=== PATIENT | male | born 1970 | race Caucasian/White ===

== ENCOUNTER 2016-07-02 13:15 | Day surgery (SDC) | payer MEDICAID ==
[2016-07-02] MEDS ORDERED: fentaNYL 100 MCG/2 ML INJ ONE (14:26)
[2016-07-02] MEDS ORDERED: MIDAZOLAM 2 MG/2 ML VIAL ONE (14:27)
[2016-07-02] MEDS ORDERED: NS 1,000 ML IV SCH (15:00)
[2016-07-02] MEDS ORDERED: IOPAMIDOL (ISOVUE-M 300) 15 ML VIAL IV ONE (15:05)
[2016-07-02] MEDS ORDERED: TRIAMCINOLONE ACETONIDE 200 MG/5 ML MDV IM ONE (15:05)
--- NOTE | 2016-07-02 15:33 | IR ---
Lumbar Epidural Steroid Injection History: Severe low back pain radiating to both legs. Consent: Risks and benefits of the procedure were discussed in detail, and informed consent was obtai haley. The patient accepted risks of lack of therapeutic benefit, internal bleeding, infection, and ac cidental dural puncture. Medications: Intravenous conscious sedation and analgesia were given under my supervision. Vital sign s, pulse oximetry, and electrocardiogram were monitored. The patient received 2 milligrams of Versed and 100 micrograms of fentanyl intravenously. Start time: 1440. End time: 1505. Fluoroscopy time in minutes: 1.1. Estimated exposure in mGy: 63.0. Technique: With the patient prone, the low back was prepped and draped in sterile fashion. 1% Xylocai ne was used for local anesthetic. Using multiplanar fluoroscopic guidance, an 18-gauge Tuohy needle w as inserted into the back of the spinal canal via L4-L5 interlaminar approach. Epidural position was confirmed with 2 mL of Isovue-M 300 and spot images. 2.5 mL of Kenalog (100 mg) and 3 mL of preservat prateek-free 1% Xylocaine were injected. The needle was removed and a frontal spot image was taken. Steri le dressing was applied. The patient tolerated the procedure well and was returned to postprocedure r ecovery for observation. Epidurogram: Epidural contrast extends from L3 through L5. Lumbar segmentation is standard. Impression: Fluoroscopic-guided lumbar epidural injection of long-acting steroid and rapid-acting ane sthetic via L4-L5. - - - - - - - - - - - - - - - - - - - - - - - - - - - - - - - - - - - - - - - - - - - - (PQRS Measures: Current medications were listed in the medical record, including all known prescript ions, [id number] medications, herbal medications, and nutritional supplements. Tobacco Use: Th e patient was advised to stop. Prophylactic antibiotic: Unnecessary. VTE prophylaxis: Unnecessary.)
== END 2016-07-02 15:45 | disposition home or self-care (01) ==
LOC: FIMAGING 13:15
PROC: 3E0S3BZ Introduction of Anesthetic Agent into Epidural Space, Percutaneous Approach (ICD-10-PCS; 2016-07-02)
PROC: 3E0S33Z Introduction of Anti-inflammatory into Epidural Space, Percutaneous Approach (ICD-10-PCS; principal; 2016-07-02 15:09)
DX: M54.5 Low back pain (principal); M48.06 Spinal stenosis, lumbar region; I10 Essential (primary) hypertension; F17.200 Nicotine dependence, unspecified, uncomplicated; G40.909 Epilepsy, unspecified, not intractable, without status epilepticus
CPT/HCPCS: J2250; J3010; J3301; Q9967

== ENCOUNTER 2016-08-05 09:32 | Emergency (ER) | payer MEDICAID ==
[2016-08-05 09:41] VITALS: BP 129/84; PULSE 92; RESP 16; TEMP 98.4; O2SAT 96
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
== END 2016-08-05 10:07 | disposition home or self-care (01) ==
DX: M54.41 Lumbago with sciatica, right side (principal); J45.909 Unspecified asthma, uncomplicated; Z72.89 Other problems related to lifestyle; Z87.891 Personal history of nicotine dependence

== ENCOUNTER 2016-09-22 08:41 | Emergency (ER) | payer MEDICAID ==
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
[2016-09-22] MEDS ORDERED: HYDROCOD/APAP 5/325 PREPACK#6 BTL TAKEHOME ONE (10:00)
[2016-09-22 10:20] VITALS: BP 129/79; PULSE 70; RESP 14; TEMP 98.4; O2SAT 96
== END 2016-09-22 10:19 | disposition home or self-care (01) ==
DX: S63.502A Unspecified sprain of left wrist, initial encounter (principal); S62.111A Displaced fracture of triquetrum [cuneiform] bone, right wrist, initial encounter for closed fracture; F17.200 Nicotine dependence, unspecified, uncomplicated; V19.9XXA Pedal cyclist (driver) (passenger) injured in unspecified traffic accident, initial encounter; Y92.410 Unspecified street and highway as the place of occurrence of the external cause; Y93.55 Activity, bike riding
CPT/HCPCS: L3807

== ENCOUNTER 2017-05-23 21:28 | Emergency (ER) | payer MEDICAID ==
[~2017-05-23 21:28] MED LIST: HALOPERIDOL LACT 5 MG/ML INJ ONE; LORazepam 2 MG/ML INJ ONE
[2017-05-23] MEDS ORDERED: LORazepam 2 MG/ML INJ IM ONE (21:30)
[2017-05-23] MEDS ORDERED: HALOPERIDOL LACT 5 MG/ML INJ IM ONE (21:30)
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
[2017-05-23 22:08] LABS: % IMMATURE GRANULYOCYTES 0.3 % (0.0-1.1); ABSOLUTE IMMATURE GRANULOCYTES 0.02 10^3/uL (0.00-0.10); ADD DIFF? NO; ADD MORPH? NO; ADD SCAN? NO; ATYPICAL LYMPHOCYTE FLAG 0 (0-99); FRAGMENT RBC FLAG 0 (0-99); HEMATOCRIT 47.3 % (40.0-51.0); HEMOGLOBIN 17.7 g/dL (13.7-17.5); LEFT SHIFT FLG 0 (0-99); LIPEMIA HEMOLYSIS FLAG 90 (0-99); MEAN CELL HEMOGLOBIN 36.6 pg (27.9-34.1); MEAN CELL HEMOGLOBIN CONCENTR. 37.4 g/dL (32.4-36.7); MEAN CELL VOLUME 97.9 fL (81.5-99.8); MEAN PLATELET VOLUME 9.9 fL (8.7-11.7); PLATELET CLUMPS FLAG 0 (0-99); PLATELET COUNT 172 10^3/uL (150-400); RED BLOOD CELL COUNT 4.83 10^6/uL (4.40-6.38); RED CELL DISTRIBUTION WIDTH 12.2 % (11.5-15.2)
[2017-05-23 22:24] LABS: ANION GAP 20 mEq/L (8-16); CARBON DIOXIDE 19 mEq/l (22-31); CHLORIDE 110 mEq/L (97-110); CREATININE 1.2 mg/dL (0.7-1.3); GLOMERULAR FILTRATION RATE > 60; GLUCOSE 93 mg/dL (70-100); POTASSIUM 3.4 mEq/L (3.5-5.2); SALICYLATE < 1.0 mg/dL (2.0-20.0); SODIUM 149 mEq/L (134-144)
[2017-05-23 22:43] LABS: ETHANOL SERUM 321 mg/dL (0-10)
[2017-05-24 07:43] VITALS: BP 110/67; PULSE 92; RESP 20; TEMP 98.2; O2SAT 93
== END 2017-05-24 08:16 | disposition home or self-care (01) ==
LOC: EDUNIT#
DX: S60.811A Abrasion of right wrist, initial encounter (principal); S60.812A Abrasion of left wrist, initial encounter; F10.920 Alcohol use, unspecified with intoxication, uncomplicated; J45.909 Unspecified asthma, uncomplicated; F17.200 Nicotine dependence, unspecified, uncomplicated; X78.8XXA Intentional self-harm by other sharp object, initial encounter
CPT/HCPCS: 80305; G0480; J2060

== ENCOUNTER 2017-06-19 15:14 | Emergency (ER) | payer MEDICAID ==
[2017-06-19 15:37] VITALS: RESP 16
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
[2017-06-19] MEDS ORDERED: IPRATROPIUM/ALBUTEROL 3 ML DEYVIAL IH ONE (16:34)
[2017-06-19] MEDS ORDERED: predniSONE 20 MG TAB PO ONE (16:35)
[2017-06-19 17:31] VITALS: BP 135/96; PULSE 87; TEMP 98.8; O2SAT 93
== END 2017-06-19 17:31 | disposition home or self-care (01) ==
DX: J20.9 Acute bronchitis, unspecified (principal); F17.200 Nicotine dependence, unspecified, uncomplicated; J45.909 Unspecified asthma, uncomplicated

== ENCOUNTER 2017-07-01 12:48 | Emergency (ER) | payer MEDICAID ==
[2017-07-01 13:02] VITALS: BP 104/76; PULSE 102; RESP 18; TEMP 97.9; O2SAT 94
[2017-07-01] MEDS ORDERED: IPRATROPIUM/ALBUTEROL 3 ML DEYVIAL IH ONE (13:06)
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
[2017-07-01 13:16] LABS: PLATELET COUNT 290 10^3/uL (150-400)
[2017-07-01 13:29] LABS: INR 0.9 (0.83-1.16); PROTIME(PATIENT) 12.4 SEC (12.0-15.0)
[2017-07-01] MEDS ORDERED: ALBUTEROL INH PREPACK MDI TAKEHOME ONE (13:33)
[2017-07-01] MEDS ORDERED: DEXAMETHASONE 4 MG TAB PO ONE (13:33)
--- NOTE | 2017-07-01 13:39 | CPEKG ---
Heart Rate: 99 RR Interval: 606 P-R Interval: 140 QRSD Interval: 94 QT Interval: 344 QTC Interval: 442 P Lyons: 58 QRS Lyons: 5 T Wave Lyons: 57 EKG Severity - NORMAL ECG - EKG Impression: SINUS RHYTHM Electronically Signed By: Ferny Aguilar 01-Jul-2017 20:14:57
== END 2017-07-01 14:06 | disposition home or self-care (01) ==
LOC: EDUNIT#
DX: J40 Bronchitis, not specified as acute or chronic (principal); F17.200 Nicotine dependence, unspecified, uncomplicated

== ENCOUNTER 2017-07-06 19:39 | Emergency (ER) | payer MEDICAID ==
--- NOTE | 2017-07-06 19:46 | EDPHY ---
HPI/HX/ROS/PE/MDM - Data Points Imaging: I viewed and interpreted images myself Narrative: CHIEF COMPLAINT: Shortness of breath HISTORY OF PRESENT ILLNESS: The patient is a 47 y/o male with a recent history of being diagnosed with bronchitis on 07/01/16, 5 days ago, arriving via EMS complaining of shortness of breath, chest pain/tightness, and left arm pain. Patient's complaints of shortness of breath and chest discomfort have been present for 3 weeks. He was given an inhaler and prednisone during his prior ED visit. His shortness of breath has been going on for 3 weeks. Admits to coughing up blood recently and being subjectively febrile. Today his friend found him down and called 911. While en route to the ER he was noncompliant with EMS. Admits to drinking 1 pint of alcohol a day and smoking marijuana, including today. Admits to feeling "abandoned" and depressed today, but does not have a psychiatrist. On direct questioning the patient denies suicidal ideation. He states that he is too scared to take his own life. Patient denies known fever, chills, palpitations, vomiting, diarrhea, urinary complaints, lightheadedness. He does complain of a headache. REVIEW OF SYSTEMS: Aside from elements discussed in the HPI, a comprehensive 10-point review of systems was reviewed and is negative. PAST MEDICAL HISTORY: Bronchitis, hepatitis C, seizures, sepsis 01/10, bacterial meningitis, degenerative disc disease, chronic leg/back pain, PTSD, appendectomy, hernia repair SOCIAL HISTORY: Daily tobacco, marijuana, and alcohol use. Of note, patient was accompanied to the emergency department by numerous please police officers. 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 VITAL SIGNS: HR: 115, others reviewed by me GENERAL: Smells of alcohol and tobacco. Agitated. Well-developed, well-nourished , resting comfortably in no respiratory distress. HEENT: Atraumatic. Eyes: No icterus, no injection. Mouth: dry mucous membranes. No erythema or lesions. Neck: supple with no adenopathy. LUNGS: Clear to auscultation bilaterally, no wheezes, rhonchi or rales. CARDIAC: Regular rate and rhythm, no rubs, murmurs or gallops. ABDOMEN: Left lower quadrant discomfort. No guarding or rebound. Soft, nondistended, bowel sounds normal. BACK: No CVA tenderness. EXTREMITIES: No trauma. No edema. Range of motion is normal throughout. NEURO: Alert and oriented, grossly nonfocal. SKIN: Warm and dry, no rash. PSYCHIATRIC: Normal mentation, no agitation. Portions of this note were transcribed by a medical laboratory manager. I personally performed a history, physical exam, medical decision making, and confirmed accuracy of information the transcribed note. (Maame Jett) ED Course: The patient is a 47 y/o male with a recent history of being diagnosed with bronchitis on 07/01/16, 5 days ago, arriving via EMS presenting with left lower quadrant pain and dry mucous membranes. He is also complaining of worsening shortness of breath. Labs, EKG, and chest x-ray ordered. 1L IV NS and 1gm PO Tylenol administered. 1954: 12-LEAD EKG: Please see the full report in [facility]. My interpretation: Sinus tachycardia with a rate of 109 Patient's lactic acid is elevated at 3.1. 2027: Reviewed patient's chest x-ray; this reveals bronchitis. 2038: Reassessed patient and discussed imaging findings. Flu swab ordered. Labs demonstrate significant dehydration with H&H being elevated. The patient's alcohol is 339. 2199: Patient has received 2 L of normal saline. Repeat lactic acid was obtained and was improving. Patient has no evidence for pneumonia or influenza. I do not believe the patient meets criteria for 72 hr mental health hold. Received duo neb and albuterol neb. Reports improvement in symptoms. Also noted elevated lipase-- perhaps gerd/gastritis as cause of chest discomfort? 2299: Intermittently tachycardic and occasionally desats to 88%. Still intoxicated and has received dilaudid for headache and ativan for anxiety. Will continue to observe/ await medication clearance and further sobriety. Care assumed by Dr. Vincent at 2300. (Maame Jett) 2300 care assumed by me from Dr. Jett pending re-evaluation as of his oxygen status. 0005 patient is improved. He is no longer hypoxic. Patient understands his medical findings. Will discharge with outpatient follow-up per Dr. Jett plan. (Sam Vincent) MDM: Differential diagnosis for the patient's shortness of breath was considered including but not limited to pulmonary infectious processes, COPD exacerbation, pulmonary emboli, pulmonary edema, congestive heart failure, and cardiac causes. (Maame Jett) - Data Points Imaging Results: Imaging Impressions Chest X-Ray 07/06/17 19:57 Impression: Expiratory phase radiograph. Laboratory Results: Laboratory Results 07/06/17 19:52 07/06/17 19:52 07/06/17 07/06/17 07/06/17 22:33 22:14 20:40 WBC RBC Hgb Hct MCV MCH MCHC RDW Plt Count MPV Neut % (Auto) Lymph % (Auto) [place] % (Auto) Eos % (Auto) Baso % (Auto) Nucleat RBC Rel Count Absolute Neuts (auto) Absolute Lymphs (auto) Absolute Monos (auto) Absolute Eos (auto) Absolute Basos (auto) Absolute Nucleated RBC Immature Gran % Immature Gran # VBG Lactic Acid 1.5 mmol/L D mmol/L (0.7-2.1) Sodium Potassium Chloride Carbon Dioxide Anion Gap BUN Creatinine Estimated GFR Glucose Calcium Total Bilirubin Conjugated Bilirubin Unconjugated Bilirubin AST ALT Alkaline Phosphatase Troponin I Total Protein Albumin Lipase Urine Color YELLOW Urine Appearance CLEAR Urine pH 6.0 (5.0-7.5) Ur Specific [place] 1.012 (1.002-1.030) Urine Protein NEGATIVE (NEGATIVE) Urine Ketones NEGATIVE (NEGATIVE) Urine Blood NEGATIVE (NEGATIVE) Urine Nitrate NEGATIVE (NEGATIVE) Urine Bilirubin NEGATIVE (NEGATIVE) Urine Urobilinogen NEGATIVE EU EU (0.2-1.0) Ur Leukocyte Esterase NEGATIVE (NEGATIVE) Urine RBC 1-3 /hpf /hpf (0-3) Urine WBC NONE SEEN /hpf /hpf (0-3) Ur Epithelial Cells NONE SEEN /lpf /lpf (NONE-1+) Urine Mucus TRACE /lpf /lpf (NONE-1+) Urine Glucose NEGATIVE (NEGATIVE) Nasal Influenza A PCR NEGATIVE FOR FLU A (NEGATIVE) Nasal Influenza B PCR NEGATIVE FOR FLU B (NEGATIVE) Urine Opiates Screen NEGATIVE (NEGATIVE) Urine Barbiturates NEGATIVE (NEGATIVE) Ur Phencyclidine Scrn NEGATIVE (NEGATIVE) Ur Amphetamine Screen NEGATIVE (NEGATIVE) U Benzodiazepines Scrn NEGATIVE (NEGATIVE) Urine Cocaine Screen NEGATIVE (NEGATIVE) U Marijuana (THC) Screen NEGATIVE (NEGATIVE) Ethyl Alcohol 07/06/17 07/06/17 07/06/17 19:52 19:52 19:52 WBC 9.70 10^3/uL H 10^3/uL (3.80-9.50) RBC 4.99 10^6/uL 10^6/uL (4.40-6.38) Hgb 18.2 g/dL H g/dL (13.7-17.5) Hct 49.6 % % (40.0-51.0) MCV 99.4 fL fL (81.5-99.8) MCH 36.5 pg H pg (27.9-34.1) MCHC 36.7 g/dL g/dL (32.4-36.7) RDW 12.1 % % (11.5-15.2) Plt Count 246 10^3/uL 10^3/uL (150-400) MPV 9.3 fL fL (8.7-11.7) Neut % (Auto) 40.1 % % (39.3-74.2) Lymph % (Auto) 46.8 % H % (15.0-45.0) [place]gs % (Auto) 9.2 % % (4.5-13.0) Eos % (Auto) 2.8 % % (0.6-7.6) Baso % (Auto) 0.7 % % (0.3-1.7) Nucleat RBC Rel Count 0.0 % % (0.0-0.2) Absolute Neuts (auto) 3.89 10^3/uL 10^3/uL (1.70-6.50) Absolute Lymphs (auto) 4.54 10^3/uL H 10^3/uL (1.00-3.00) Absolute Monos (auto) 0.89 10^3/uL H 10^3/uL (0.30-0.80) Absolute Eos (auto) 0.27 10^3/uL 10^3/uL (0.03-0.40) Absolute Basos (auto) 0.07 10^3/uL 10^3/uL (0.02-0.10) Absolute Nucleated RBC 0.00 10^3/uL 10^3/uL (0-0.01) Immature Gran % 0.4 % % (0.0-1.1) Immature Gran # 0.04 10^3/uL 10^3/uL (0.00-0.10) VBG Lactic Acid 3.1 mmol/L H mmol/L (0.7-2.1) Sodium 144 mEq/L mEq/L (134-144) Potassium 4.1 mEq/L mEq/L (3.5-5.2) Chloride 106 mEq/L mEq/L (97-110) Carbon Dioxide 21 mEq/l L mEq/l (22-31) Anion Gap 17 mEq/L H mEq/L (8-16) BUN 14 mg/dL mg/dL (7-23) Creatinine 1.0 mg/dL mg/dL (0.7-1.3) Estimated GFR > 60 Glucose 120 mg/dL H mg/dL (70-100) Calcium 10.4 mg/dL mg/dL (8.5-10.4) Total Bilirubin 0.3 mg/dL mg/dL (0.1-1.4) Conjugated Bilirubin 0.2 mg/dL mg/dL (0.0-0.5) Unconjugated Bilirubin 0.1 mg/dL mg/dL (0.0-1.1) AST 56 IU/L IU/L (17-59) ALT 63 IU/L IU/L (21-72) Alkaline Phosphatase 100 IU/L IU/L (38-126) Troponin I < 0.012 ng/mL ng/mL (0.000-0.034) Total Protein 7.5 g/dL g/dL (6.3-8.2) Albumin 4.5 g/dL g/dL (3.5-5.0) Lipase 487 IU/L H IU/L (23-300) Urine Color Urine Appearance Urine pH Ur Specific [place] Urine Protein Urine Ketones Urine Blood Urine Nitrate Urine Bilirubin Urine Urobilinogen Ur Leukocyte Esterase Urine RBC Urine WBC Ur Epithelial Cells Urine Mucus Urine Glucose Nasal Influenza A PCR Nasal Influenza B PCR Urine Opiates Screen Urine Barbiturates Ur Phencyclidine Scrn Ur Amphetamine Screen U Benzodiazepines Scrn Urine Cocaine Screen U Marijuana (THC) Screen Ethyl Alcohol 336 mg/dL H mg/dL (0-10) Medications Given: Discontinued Medications Acetaminophen (Tylenol) 1,000 mg PO EDNOW ONE Stop: 07/06/17 20:02 Last Admin: 07/06/17 20:05 Dose: 1,000 mg Albuterol (Proventil Neb) 3 ml IH EDNOW ONE Stop: 07/06/17 22:51 Last Admin: 07/06/17 22:58 Dose: 3 ml Albuterol/Ipratropium (Duoneb) 3 ml IH EDNOW ONE Stop: 07/06/17 22:28 Last Admin: 07/06/17 22:37 Dose: 3 ml Azithromycin (Zithromax) 500 mg PO EDNOW ONE PRN Reason: Protocol Stop: 07/06/17 22:28 Last Admin: 07/06/17 22:36 Dose: 500 mg Hydromorphone HCl (Dilaudid) 1 mg IVP EDNOW ONE Stop: 07/06/17 21:34 Last Admin: 07/06/17 21:50 Dose: 1 mg Sodium Chloride (Ns) 1,000 mls @ 0 mls/hr IV ONCE ONE; Wide Open PRN Reason: Protocol Stop: 07/06/17 19:57 Last Admin: 07/06/17 19:58 Dose: 1,000 mls Sodium Chloride (Ns) 1,000 mls @ 0 mls/hr IV ONCE ONE; Wide Open PRN Reason: Protocol Stop: 07/06/17 20:40 Last Admin: 07/06/17 20:52 Dose: 1,000 mls Sodium Chloride (Ns) 1,000 mls @ 0 mls/hr IV ONCE ONE; Wide Open PRN Reason: Protocol Stop: 07/06/17 21:34 Last Admin: 07/06/17 21:50 Dose: Not Given Lorazepam (Ativan Injection) 0.5 mg IVP EDNOW ONE Stop: 07/06/17 20:59 Last Admin: 07/06/17 21:05 Dose: 0.5 mg Ondansetron HCl (Zofran) 4 mg IVP EDNOW ONE Stop: 07/06/17 20:46 Last Admin: 07/06/17 20:47 Dose: 4 mg General Time Seen by Provider: 07/06/17 19:42 Initial Vital Signs: Initial Vital Signs Temperature (C) 37 C 07/06/17 19:45 Heart Rate 115 H 07/06/17 19:45 Respiratory Rate 18 07/06/17 19:45 Blood Pressure 129/107 H 07/06/17 19:45 O2 Sat (%) 94 07/06/17 19:45 O2 Delivery Mode Room Air O2 (L/minute) 2 Allergies/Adverse Reactions: Fish Containing Products [fish] Allergy (Verified 07/06/17 19:49) sumatriptan [From Imitrex] Allergy (Verified 07/06/17 19:49) sumatriptan succinate [From Imitrex] Allergy (Verified 07/06/17 19:49) venom-honey bee [bee venom (honey bee)] Allergy (Verified 07/06/17 19:49) BEE Allergy (Uncoded 08/06/15 11:02) Home Medications: Medication Instructions Recorded Phenytoin Sodium Extended 400 mg PO DAILY 04/24/15 [Dilantin (*)] Albuterol [Proventil Inhaler HFA 1 - 2 puffs IH Q4PRN PRN #1 mdi 04/25/15 (*)] Ibuprofen [Motrin (*)] 800 mg PO Q6 #15 tab 10/27/15 Baclofen [Baclofen 10 mg (*)] 10 mg PO TID 07/01/16 Diclofenac Sodium 75 mg PO BID 07/01/16 LYRICA 08/05/16 Albuterol [Proventil Inhaler HFA 1 - 2 puffs IH Q4H #1 mdi 06/19/17 (*)] predniSONE 60 mg PO DAILY #15 tab 06/19/17 Azithromycin [Zithromax] 250 mg PO DAILY #4 tab 07/06/17 Departure - Departure Disposition: Home, Routine, Self-Care Clinical Impression: Acute bronchitis Qualifiers: Bronchitis organism: unspecified organism Qualified Code(s): J20.9 - Acute bronchitis, unspecified Alcohol intoxication Qualifiers: Complication of substance-induced condition: uncomplicated Qualified Code(s): F10.920 - Alcohol use, unspecified with intoxication, uncomplicated Condition: Good Instructions: Gastritis (ED), Acute Bronchitis (ED) Additional Instructions: Please take antibiotics as directed. Azithromycin 250 mg by mouth for the next 4 days. Please use your albuterol meter dose inhaler to help with shortness of breath. Stop drinking alcohol in excessive quantities. Begin taking omeprazole as directed. Omeprazole 20mg by mouth each day for 14 days. Referrals: Patient,NotPresent [Unknown] - As per Instructions Prescriptions: Azithromycin [Zithromax] 250 mg PO DAILY #4 tab Report Scribed for: Maame Jett Report Scribed by: Adrianne Harrison Date of Report: 07/06/17 Time of Report: 20:01
[2017-07-06 19:49] VITALS: TEMP 98.6
[2017-07-06] MEDS ORDERED: NS 1,000 ML IV ONE ×3 (19:56→21:33)
--- NOTE | 2017-07-06 19:57 | CPEKG ---
Heart Rate: 109 RR Interval: 550 P-R Interval: 136 QRSD Interval: 90 QT Interval: 320 QTC Interval: 431 P Holbrook: 51 QRS Holbrook: -2 T Wave [place]: 84 EKG Severity - OTHERWISE NORMAL ECG - EKG Impression: SINUS TACHYCARDIA Electronically Signed By: Maame Jett 06-Jul-2017 22:38:37
[2017-07-06] MEDS ORDERED: ACETAMINOPHEN 500 MG TAB PO ONE (20:01)
[2017-07-06 20:11] LABS: PLATELET COUNT 246 10^3/uL (150-400)
[2017-07-06] MEDS ORDERED: ONDANSETRON 4 MG/2 ML VIAL ONE (20:42)
[2017-07-06] MEDS ORDERED: ONDANSETRON 4 MG/2 ML VIAL IVP ONE (20:45)
[2017-07-06] MEDS ORDERED: LORazepam 2 MG/ML INJ IVP ONE (20:58)
[2017-07-06] MEDS ORDERED: HYDROmorphONE/DILAUDID 1 MG/ML INJ IVP ONE (21:33)
[2017-07-06 21:55] VITALS: RESP 16
[2017-07-06] MEDS ORDERED: AZITHROMYCIN 250 MG TAB PO ONE (22:27)
[2017-07-06] MEDS ORDERED: IPRATROPIUM/ALBUTEROL 3 ML DEYVIAL IH ONE (22:27)
[2017-07-06] MEDS ORDERED: ALBUTEROL 3 ML DEYVIAL IH ONE (22:50)
[2017-07-06 23:58] VITALS: BP 122/83; PULSE 109; O2SAT 91
== END 2017-07-07 00:04 | disposition home or self-care (01) ==
LOC: EDUNIT#
DX: J20.9 Acute bronchitis, unspecified (principal); F10.920 Alcohol use, unspecified with intoxication, uncomplicated; E86.9 Volume depletion, unspecified; F17.200 Nicotine dependence, unspecified, uncomplicated
CPT/HCPCS: 80305; 96374; G0480; J1170; J2060; J2405; J7613

== ENCOUNTER 2017-11-30 06:18 | Emergency (ER) | payer MEDICAID ==
--- NOTE | 2017-11-30 06:27 | EDPHY ---
H & P Time Seen by Provider: 11/30/17 06:24 HPI/ROS: Chief Complaint: Right foot pain HPI: 39-year-old male injured his right foot last night while walking down the hill. Patient states he tripped and fell. He is able to walk home but has had worsening pain since that time. He has no unable to put any weight on it. Denies prior injuries. Does have a history of chronic back pain for which she takes baclofen, Flexeril and Vicodin. He is currently homeless and staying in a long-term house. Also sustained an abrasion to his left knee. Denies any other injuries. Did not hit his head. No loss of consciousness. Pain is an 8/ 10. He denies skin rash, no fevers or chills. No new numbness or weakness. ROS: 10 point Review of Systems is negative except as noted in the HPI. PMH: Chronic back pain Social History: Positive smokin Family History: non-contributory Physical Exam: General: Awake, alert, no acute distress Left leg: There is abrasion below his left patella. Full range of motion, no bony tenderness or deformities of his left leg. Right leg: Knee is nontender, full range of motion without pain. Hip has full range of motion without pain. He has decreased range of motion was ankle secondary is foot pain. No tenderness over the lateral or medial malleolus. He has tenderness in the lateral midfoot over the proximal 4th and 5th metatarsals. Mild swelling, no erythema, no warmth. Sensations intact in all dermatomes. Capillary refills less than 2 sec. He has 2+ dorsalis pedis pulses. Skin: No rash - Personal History Tetanus Vaccine Date: 12/2014 - Medical/Surgical History Hx Asthma: Yes Hx Chronic Respiratory Disease: No Hx Diabetes: No Hx Cardiac Disease: No Hx Renal Disease: No Hx Cirrhosis: No Hx Alcoholism: No Hx HIV/AIDS: No Hx Splenectomy or Spleen Trauma: No Other PMH: HEP C,APPY, MIGRAINES, SIEZURES,SEPSIS 12/2014,BACT MENINGITIS 1999, [id number] WITH SUBDURAL, ANKLE SURG, FACE SURG, L FEMUR SURG., L hernia rpr 07/14, Degenerative Disc Dz, marijuana user, ptsd, depression. chronic leg/back pain - Social History Smoking Status: Current every day smoker Constitutional: Initial Vital Signs Temperature (C) 36.7 C 11/30/17 06:21 Heart Rate 102 H 11/30/17 06:21 Respiratory Rate 18 11/30/17 06:21 Blood Pressure 127/98 H 11/30/17 06:21 O2 Sat (%) 97 11/30/17 06:21 O2 Delivery Mode Room Air Allergies/Adverse Reactions: Fish Containing Products [fish] Allergy (Verified 11/30/17 06:20) sumatriptan [From Imitrex] Allergy (Verified 11/30/17 06:20) sumatriptan succinate [From Imitrex] Allergy (Verified 11/30/17 06:20) venom-honey bee [bee venom (honey bee)] Allergy (Verified 11/30/17 06:20) BEE Allergy (Uncoded 11/30/17 06:20) Home Medications: Medication Instructions Recorded Phenytoin Sodium Extended 400 mg PO DAILY 04/24/15 [Dilantin (*)] Albuterol [Proventil Inhaler HFA 1 - 2 puffs IH Q4PRN PRN #1 mdi 04/25/15 (*)] Ibuprofen [Motrin (*)] 800 mg PO Q6 #15 tab 10/27/15 Baclofen [Baclofen 10 mg (*)] 10 mg PO TID 07/01/16 Diclofenac Sodium 75 mg PO BID 07/01/16 LYRICA 08/05/16 Albuterol [Proventil Inhaler HFA 1 - 2 puffs IH Q4H #1 mdi 06/19/17 (*)] predniSONE 60 mg PO DAILY #15 tab 06/19/17 Azithromycin [Zithromax] 250 mg PO DAILY #4 tab 07/06/17 Medical Decision Making - Diagnostics Imaging Results: Right foot x-rays negative for acute fracture per my interpretation. ED Course/Re-evaluation: 39-year-old male with right foot pain status post fall last evening. X-rays negative for acute fracture. He has not have any significant swelling or deformity. There is no erythema. He does suffer from chronic pain. Plan will be to discharge with his usual pain regimen at home. I am not going to give him any further narcotics here. He will be referred to Orthopedics for outpatient follow-up. Departure - Departure Disposition: Home, Routine, Self-Care Clinical Impression: Foot sprain Condition: Good Instructions: Foot Sprain (ED), Crutch Instructions (ED) Additional Instructions: You may use crutches as needed to assist you in your mobility. Follow up with orthopedic surgeon in 4-5 days if symptoms are not improving. You may take your usual pain medications to treat your foot pain. Apply ice for 15 min of every hour while awake. Referrals: Jack Akbar MD [Medical Doctor] - As per Instructions
[2017-11-30 07:16] VITALS: BP 125/72
== END 2017-11-30 07:20 | disposition home or self-care (01) ==
LOC: EDUNIT#
DX: S93.601A Unspecified sprain of right foot, initial encounter (principal); F17.200 Nicotine dependence, unspecified, uncomplicated; J45.909 Unspecified asthma, uncomplicated; W01.0XXA Fall on same level from slipping, tripping and stumbling without subsequent striking against object, initial encounter; Y92.828 Other wilderness area as the place of occurrence of the external cause; Y99.8 Other external cause status; Y93.01 Activity, walking, marching and hiking

== ENCOUNTER 2018-03-22 10:37 | Emergency (ER) | payer MEDICAID ==
--- NOTE | 2018-03-22 11:59 | EDPHY ---
General - History Smoking Status: Current every day smoker Time Seen by Provider: 03/22/18 11:52 Narrative: CHIEF COMPLAINT: Back pain HISTORY OF PRESENT ILLNESS: Patient presents with complaints of severe low back pain. Pain is been present for nearly 2 years. It is lumbar only. Rated as severe, 10/10. Constant duration. No position of comfort. Occasionally radiates into the right leg. He reports some "occasional problems with urination," but denies any true incontinence. He reports increasing pain over the past few weeks. [facility], where they "did some injections." He states this was minimally helpful. He has been taking Pacific 10 mg twice daily prescribed by his primary care physician. He says that he has been seen by Neurosurgery last year and they recommended surgical intervention at the time but he declined. He has no new trauma or injury. No other associated complaints or modifying factors. REVIEW OF SYSTEMS: 10 systems were reviewed and negative with the exception of the elements mentioned in the history of present illness. PCP: YASEMIN Vines SPECIALISTS: None currently. Previously seen by Dr. Neri Noland PAST MEDICAL HISTORY: Hepatitis-C, migraines, seizure disorder, subdural hematoma, sepsis, hernia, degenerative disc disease, PTSD, depression, chronic pain PAST SURGICAL HISTORY: Hernia repair, left femur ORIF, left ankle ORIF SOCIAL HISTORY: Daily smoker. Not currently working. FAMILY HISTORY: Noncontributory EXAMINATION: General Appearance: Alert, no distress. Ambulatory. Conversing in full sentences Head: normocephalic, atraumatic Eyes: Pupils equal and round, no conjunctival pallor or injection Neck: Normal inspection, supple, non-tender Respiratory: Lungs are clear to auscultation Cardiovascular: Regular rate and rhythm Gastrointestinal: Abdomen is soft and nontender Back: Tenderness of the lumbar spine and musculature without crepitus, step- off or deformity. Neurological: GCS 15. A&O, nonfocal, antalgic but no ataxia. Strength is symmetric in the knees, ankles and great toes of 5/5. Light sensory symmetric in lower extremities. Patellar reflexes 2+ symmetrically. Skin: Warm and dry, no rash. There is no petechiae or purpura. No cellulitis or abscess over the low back. Extremities: Nontender, no pedal edema Psychiatric: Mood and affect normal DIFFERENTIAL DIAGNOSES: Including but not limited to degenerative disc disease, lumbar stenosis, foraminal stenosis, subluxation, dislocation, diskitis MDM: 11:50 a.m. Severe lumbar back pain with normal neuro examination. Patient reports a contract with [facility], Fritz MEEHAN. He is asking not to compromise this. He reports being seen by Dr. Noland approximately 1 year ago, but has declined their recommendation of surgical intervention. He does appear to be in pain, but I do not appreciate any evidence of acute cord compression or cauda equina. He reports an MRI 2 weeks ago that I will obtain reported. 12:10 p.m. I contacted [facility] [employer], and they will fax his MRI to his. I have also contacted his painter and grader cork. He is currently at lunch and I have left a message room coming back. I have also contacted his primary care physician and they have given the same answer. 12:30 p.m. MRI report obtained. Date of exam is February 22, 2018. MR I lumbar spine without contrast. Impression is overall similar MRI with severe canal stenosis at L4-5 due to subluxation, broad-based disc and abundant bony hypertrophy. Also moderate to severe bilateral foraminal stenosis likely affecting the exiting L4 nerve root. Comparison was made to MRI of July 2016. 1:35 p.m. Case discussed with primary care physician YASEMIN Miller. She is comfortable the patient being given prescription for Percocet. She would like him to return the remainder of her Pacific to her. 1:50 p.m. Case discussed with patient's painter and grader cork, Jovanny MEEHAN. He is comfortable this short course of Percocet as well. He would like the patient to contact their office to be seen regarding further medication. 2:00 p.m. Patient re-evaluated. I discussed my conversations with his primary care physician and pain management. We discussed short course of Percocet, Medrol Dosepak, Flexeril. We discussed ED precautions for worsening pain, fever, redness with back, numbness or tingling. Incontinence of bowel or bladder. He verbalizes understanding of this. He knows that he must take his medication back to his primary care physician. Discharged home stable condition. SUPERVISION: Patient was independently examined, but I discussed the case with my secondary supervising physician Dr. Maame Jett CONSULTATION: Pain management and primary care physician by telephone (Dat Velazquez) Discussion: T The patient was evaluated and managed by the Physician Guest Service Aide. I discussed the patient's presentation and course with the midlevel provider with them and agree with the evaluation. My co-signature indicates that I have reviewed this chart and I agree with the findings and plan of care as documented. I am the secondary supervising physician. (Maame Jett) - Objective Vital Signs: Initial Vital Signs Temperature (C) 36.3 C 03/22/18 10:40 Heart Rate 72 03/22/18 10:40 Respiratory Rate 22 H 03/22/18 10:40 Blood Pressure 144/92 H 03/22/18 10:40 O2 Sat (%) 96 03/22/18 10:40 O2 Delivery Mode Room Air Allergies/Adverse Reactions: Fish Containing Products [fish] Allergy (Verified 03/22/18 10:44) sumatriptan [From Imitrex] Allergy (Verified 03/22/18 10:44) sumatriptan succinate [From Imitrex] Allergy (Verified 03/22/18 10:44) venom-honey bee [bee venom (honey bee)] Allergy (Verified 03/22/18 10:44) BEE Allergy (Uncoded 03/22/18 10:44) Home Medications: Medication Instructions Recorded Phenytoin Sodium Extended 400 mg PO DAILY 04/24/15 [Dilantin (*)] Albuterol [Proventil Inhaler HFA 1 - 2 puffs IH Q4PRN PRN #1 mdi 04/25/15 (*)] Ibuprofen [Motrin (*)] 800 mg PO Q6 #15 tab 10/27/15 Baclofen [Baclofen 10 mg (*)] 10 mg PO TID 07/01/16 Diclofenac Sodium 75 mg PO BID 07/01/16 LYRICA 08/05/16 Albuterol [Proventil Inhaler HFA 1 - 2 puffs IH Q4H #1 mdi 06/19/17 (*)] predniSONE 60 mg PO DAILY #15 tab 06/19/17 Azithromycin [Zithromax] 250 mg PO DAILY #4 tab 07/06/17 Cyclobenzaprine [Flexeril 10 MG 10 mg PO TID PRN #15 tab 03/22/18 (*)] methylPREDNISolone [Medrol Dose 1 each PO AD #1 ea 03/22/18 Ramana] oxyCODONE HCL/ACETAMINOPHEN 1 each PO Q4-6PRN PRN #15 tablet 03/22/18 [Percocet 5-325 mg Tablet] Medications Given: Discontinued Medications Ondansetron HCl (Zofran Odt) 4 mg PO EDNOW ONE Stop: 03/22/18 12:13 Last Admin: 03/22/18 12:22 Dose: 4 mg Departure - Departure Disposition: Home, Routine, Self-Care Clinical Impression: Lumbar degenerative disc disease Condition: Good Instructions: Degenerative Disc Disease (ED), Lower Back Exercises (ED) Additional Instructions: 1. You must take the remaining Pacific back to your primary care physician. 2. Percocet pain medication as prescribed as needed 3. Medrol Dosepak to completion 4. Flexeril as prescribed as needed 5. I have discussed this with the painter and grader cork, Jovanny Marroquin. He agrees that this is reasonable at this time and willing to contact him for further care 6. I discussed this with primary care physician. 7. Contact neurosurgeon for outpatient definitive care 8. ED precautions as discussed Referrals: Stefany De Guzman PA [Primary Care Provider] - As per Instructions Neri Noland MD [Medical Doctor] - As per Instructions Prescriptions: Cyclobenzaprine [Flexeril 10 MG (*)] 10 mg PO TID PRN #15 tab PRN Reason: Spasms methylPREDNISolone [Medrol Dose Ramana] 1 each PO AD #1 ea oxyCODONE HCL/ACETAMINOPHEN [Percocet 5-325 mg Tablet] 1 each PO Q4-6PRN PRN # 15 tablet PRN Reason: Pain, Breakthrough
[2018-03-22] MEDS: ONDANSETRON DISINTEGRATING 4 MG TAB PO ONE (12:22)
[2018-03-22 14:03] VITALS: BP 170/96
== END 2018-03-22 14:03 | disposition home or self-care (01) ==
DX: M51.36 Other intervertebral disc degeneration, lumbar region (principal)